=== PATIENT | female | born 1945 | race Two or more races ===

== ENCOUNTER 2022-01-19 08:02 | Outpatient (CLI) | payer OTHER | END 2022-01-19 08:16 | disposition home or self-care (01) | LOC: RAD 08:02 | DX: Z12.31 Encounter for screening mammogram for malignant neoplasm of breast (principal); R05.1 Acute cough ==

== ENCOUNTER 2022-01-19 10:02 | Outpatient (CLI) | payer OTHER | END 2022-01-19 13:18 | disposition home or self-care (01) | LOC: LAB 10:02 | DX: E11.9 Type 2 diabetes mellitus without complications (principal); N18.1 Chronic kidney disease, stage 1; E03.9 Hypothyroidism, unspecified; E78.2 Mixed hyperlipidemia; Z12.11 Encounter for screening for malignant neoplasm of colon; I50.9 Heart failure, unspecified ==

== ENCOUNTER 2022-01-25 13:15 | Outpatient (CLI) | payer OTHER | END 2022-01-25 13:16 | disposition home or self-care (01) | LOC: NUCLEAR 13:15 | PROVIDERS: ATTEND General Practice | DX: M89.8X9 Other specified disorders of bone, unspecified site (principal) ==

== ENCOUNTER 2022-01-25 13:39 | Outpatient (CLI) | payer OTHER | END 2022-01-25 13:40 | disposition home or self-care (01) | LOC: LAB 13:39 | DX: E11.9 Type 2 diabetes mellitus without complications (principal); N18.1 Chronic kidney disease, stage 1; E03.9 Hypothyroidism, unspecified; E78.2 Mixed hyperlipidemia; Z12.11 Encounter for screening for malignant neoplasm of colon; I50.9 Heart failure, unspecified ==